=== PATIENT | female | born 1980 ===

== ENCOUNTER 2020-12-09 11:28 | Emergency (ER) | payer OTHER ==
[2020-12-09 13:36] LABS: HEMOGLOBIN 14.3 gm/dl (12.3-15.3); RED BLOOD COUNT 4.99 M/UL (4.00-5.10); WHITE BLOOD COUNT 7.2 K/UL (4.5-11.0)
[2020-12-09 14:05] LABS: BUN/CREATININE RATIO 11 (0-10)
== END 2020-12-09 20:05 | disposition short-term general hospital (02) ==
LOC: ER1 11:28
PROVIDERS: Emergency Medicine
DX: R45.851 Suicidal ideations (principal); F10.10 Alcohol abuse, uncomplicated; R45.1 Restlessness and agitation; F19.90 Other psychoactive substance use, unspecified, uncomplicated; Z20.822 Contact with and (suspected) exposure to COVID-19
CPT/HCPCS: 70450; 71045; 80053; 80307; 84439; 84443; 84703; 85025; 86140; 96372; 96374; 99285; G0480; J1200; J1630; J2060; U0002